=== PATIENT | male | born 1990 | race African-American/Black ===

== ENCOUNTER 2016-05-22 21:39 | Emergency (ER) | payer MEDICAID ==
[~2016-05-22] VITALS: Ht 182.9 cm; Wt 74.8 kg
[2016-05-22] MEDS ORDERED: Albuterol ud Inhalation HHN ONE (22:30)
[2016-05-22] MEDS ORDERED: Ipratropium 0.02% Inh Soln 2.5ml UD HHN ONE (22:30)
--- NOTE | 2016-05-22 22:40 | Emergency Room Report ---
History of Present Illness General Chief Complaint: Upper Respiratory Illness Source: Patient Present Illness HPI Patient reports that he has been having increased cough and congestion Also has pain to the left ear causing pain to the left side of the head Patient reports that he was at another hospital 3 weeks ago Had fairly extensive workup including CAT scan of the abdomen pelvis Denies any diarrhea denies any fevers he has had some mild chills he feels that with the increased cough he's having increased discomfort in the left ear Denies any change in hearing Pain is 4/10 localized behind the left ear' Allergies: Coded Allergies: No Known Allergies (Unverified , 05/22/16) Patient History Past Medical History: see triage record Pertinent Family History: none Reviewed Nursing Documentation: PMH: Agreed, PSxH: Agreed Nursing Documentation-PMH Past Medical History: No History, Except For Review of Systems All Other Systems: negative except mentioned in HPI Physical Exam Vital Signs Date Time Temp Pulse Resp B/P Pulse Ox O2 Delivery O2 Flow Rate FiO2 05/22/16 22:07 100.6 122 16 101/62 91 Room Air Sp02 EP Interpretation: reviewed, normal General Appearance: well appearing, no apparent distress Head: normocephalic, atraumatic Eyes: bilateral eye EOMI, bilateral eye PERRL ENT: hearing grossly normal, normal pharynx, uvula midline, other - Erythematous left tympanic membrane mildly bulging, no obvious perforation mastoid is appropriate on palpation Neck: full range of motion, supple, no meningismus, no bony tend Respiratory: lungs clear, normal breath sounds, no rhonchi, no respiratory distress, no retraction, no accessory muscle use Cardiovascular #1: normal peripheral pulses, regular rate, rhythm, no edema, no gallop, no JVD, no murmur Gastrointestinal: normal bowel sounds, non tender, soft, no mass, no organomegaly, non-distended, no guarding, no hernia, no pulsatile mass, no rebound Genitourinary: no CVA tenderness Musculoskeletal: normal inspection Neurologic: oriented x3, responsive, search manager III-XII nml as tested, motor strength/ tone normal, sensory intact Psychiatric: mood/affect normal Skin: normal color, no rash, warm/dry, palpation normal Lymphatic: normal inspection, no adenopathy Medical Decision Making Diagnostic Impression: Primary Impression: Pneumonia Additional Impression: Otitis media ER Course Patient's physical exam reveals evidence of otitis media He states that he has a history of asthma and his cough has exacerbated as well Imaging study was obtained which Does reveal evidence of markings in the right lower lobe likely infiltrate versus other Patient was given breathing treatment here which she feels significantly better with initial dose of antibiotics was provided Patient's hemoglobin is low at 8.8 and upon further questioning he states that he has been told he has anemia in the past Patient was given further hydration saturates well on room air Needs all criteria for initial outpatient attempt I did discuss with him the concerning findings on the chest x-ray the need for reevaluation and followup Patient was understanding He also had fairly extensive workup at [facility] and follow up on those results is also important Labs Test 05/22/16 23:32 White Blood Count 12.4 K/UL (4.8-10.8) Red Blood Count 2.88 M/UL (4.70-6.10) Hemoglobin 8.8 G/DL (14.2-18.0) Hematocrit 25.3 % (42.0-52.0) Mean Corpuscular Volume 88 FL (80-99) Mean Corpuscular Hemoglobin 30.5 PG (27.0-31.0) Mean Corpuscular Hemoglobin Concent 34.8 G/DL (32.0-36.0) Red Cell Distribution Width 12.9 % (11.6-14.8) Platelet Count 301 K/UL (150-450) Mean Platelet Volume 8.7 FL (6.5-10.1) Neutrophils (%) (Auto) % (45.0-75.0) Lymphocytes (%) (Auto) % (20.0-45.0) Monocytes (%) (Auto) % (1.0-10.0) Eosinophils (%) (Auto) % (0.0-3.0) Basophils (%) (Auto) % (0.0-2.0) Sodium Level 134 mEQ/L (135-145) Potassium Level 3.5 mEQ/L (3.4-4.9) Chloride Level 94 mEQ/L (98-107) Carbon Dioxide Level 25 mEQ/L (20-30) Anion Gap 15 (5-15) Blood Urea Nitrogen 15 mg/dL (7-23) Creatinine 1.0 mg/dL (0.7-1.2) Estimat Glomerular Filtration Rate > 60 mL/min (>60) Glucose Level 115 mg/dL (74-106) Calcium Level 8.4 mg/dL (8.6-10.2) Chest X-Ray Diagnostic Results EP Interpretation: Yes Findings: no effusion, no pneumothorax, other - Right lower lobe infiltrate versus other Number of Views: 1 Last Vital Signs Date Time Temp Pulse Resp B/P Pulse Ox O2 Delivery O2 Flow Rate FiO2 05/22/16 22:07 100.6 122 16 101/62 91 Room Air Status: improved Disposition: HOME, SELF-CARE Condition: Improved Scripts Promethazine HCl/Codeine (Prometh-Codein 6.25-10 mg/5 ml) 5 Ml Syrup 5 ML PO QHS for 5 Days, ML Prov: JORGE ALBERTO AGUIRRE D.O. 05/23/16 Albuterol Sulfate* (ALBUTEROL SULFATE MDI*) 8.5 Gm Hfa.aer.ad 2 PUFF INH Q4H Y for cough/wheezing, #1 EA 0 Refills Prov: JORGE ALBERTO AGUIRRE D.O. 05/23/16 Levofloxacin* (LEVAQUIN*) 750 Mg Tablet 750 MG ORAL DAILY for 10 Days, TAB Prov: JORGE ALBERTO AGUIRRE D.O. 05/23/16 Ibuprofen* (MOTRIN*) 600 Mg Tablet 600 MG ORAL Q8H Y for For Pain, #20 TAB 0 Refills Prov: JORGE ALBERTO AGUIRRE D.O. 05/22/16 Additional Instructions: Patient is provided with the discharge instructions notified to follow up with primary doctor in the next 2-3 days otherwise return to the er with any worsening symptoms. JORGE ALBERTO AGUIRRE D.O. May 22, 2016 22:40
[2016-05-22 22:53] VITALS: BP 101/62
[2016-05-22] MEDS ORDERED: AUGMENTIN 875-1 EAC1 ORAL (23:06)
[2016-05-22] MEDS ORDERED: IBUPROFEN600 MG ORAL (23:06)
[2016-05-22] MEDS ORDERED: Levofloxacin 500mg tab ONE (23:30)
[2016-05-23 00:07] LABS: MEAN CORPUSCULAR HEMOGLOBIN 30.5 PG (27.0-31.0); MEAN CORPUSCULAR HGB CONC 34.8 G/DL (32.0-36.0); MEAN CORPUSCULAR VOLUME 88 FL (80-99); MEAN PLATELET VOLUME 8.7 FL (6.5-10.1); PLATELET COUNT 301 K/UL (150-450); RED BLOOD COUNT 2.88 M/UL (4.70-6.10); RED CELL DISTRIBUTION WIDTH 12.9 % (11.6-14.8); WHITE BLOOD COUNT 12.4 K/UL (4.8-10.8)
[2016-05-23] MEDS ORDERED: Acetaminophen 500mg (ES) tab ORAL ONE ×2 (00:13→00:15)
[2016-05-23] MEDS ORDERED: ALBUTEROL SULF8.5 GM INH (00:13)
[2016-05-23] MEDS ORDERED: LEVAQUIN750 MG ORAL (00:13)
[2016-05-23 00:24] LABS: ANION GAP 15 (5-15); CALCIUM 8.4 mg/dL (8.6-10.2); CARBON DIOXIDE 25 mEQ/L (20-30); CHLORIDE 94 mEQ/L (98-107); GLOMERULAR FILTRATION RATE > 60 mL/min (>60); HEMOLYSIS 1; POTASSIUM 3.5 mEQ/L (3.4-4.9); SODIUM 134 mEQ/L (135-145)
[2016-05-23] MEDS ORDERED: PROMETH-CODEIN 65 ML PO (01:00)
[2016-05-23 01:15] VITALS: BP 122/62
[2016-05-23] MEDS ORDERED: Levofloxacin 500mg tab ORAL SCH (09:00)
--- NOTE | 2016-05-23 10:28 | Diagnostic Imaging Report ---
Indication: COUGH Technique: Single portable AP view of the chest. Findings: Comparison: None. Focal consolidative opacity lateral right lung base. The bones and extra pulmonary soft tissues, cardiomediastinal silhouette, pulmonary vasculature, left lung parenchyma, and lateral pleural surfaces are unremarkable. IMPRESSION: Opacity right lung base compatible with but not specific for pneumonia.
== END 2016-05-23 01:15 | disposition home or self-care (01) ==
LOC: EMR 22:17
DX: J18.9 Pneumonia, unspecified organism (principal); H66.92 Otitis media, unspecified, left ear
CPT/HCPCS: 36415; 71010; 80048; 85025; 87040; 94640; 94664; 96360; 96361